=== PATIENT | female | born 1990 | race Caucasian/White ===

== ENCOUNTER 2018-01-14 11:01 | Emergency (ER) | payer OTHER ==
[~2018-01-14] VITALS: Ht 152.4 cm; Wt 56.7 kg
[~2018-01-14 11:01] MED LIST: BENADRYL50 MG PO; FOLIC ACID0.4 MG; PEPCID20 MG
== END 2018-01-14 15:27 | disposition home or self-care (01) ==
LOC: ER 11:01
DX: K52.89 Other specified noninfective gastroenteritis and colitis (principal)

== ENCOUNTER 2019-10-07 15:41 | Inpatient (IN) | payer OTHER ==
[~2019-10-07] VITALS: Ht 152.4 cm; Wt 75.7 kg
[2019-10-28] MEDS ORDERED: PRENATAL TABLE1 EAC1 PO (10:03)
== END 2019-10-30 12:24 | disposition home or self-care (01) | DRG 807 ==
LOC: OB/GYN 10-28 09:48 → LDR 10-28 09:48 → OB/GYN 10-28 12:41 → SURH 11-09 12:30
PROVIDERS: ADMIT Obstetrics & Gynecology; ATTEND Obstetrics & Gynecology
PROC: 10E0XZZ Delivery of Products of Conception, External Approach (ICD-10-PCS; principal; 2019-10-28)
PROC: 10907ZC Drainage of Amniotic Fluid, Therapeutic from Products of Conception, Via Natural or Artificial Opening (ICD-10-PCS; 2019-10-28)
PROC: 4A1HXCZ Monitoring of Products of Conception, Cardiac Rate, External Approach (ICD-10-PCS; 2019-10-28)
DX: O80 Encounter for full-term uncomplicated delivery (principal); Z37.0 Single live birth; Z3A.38 38 weeks gestation of pregnancy